=== PATIENT | male | born 1970 | race Caucasian/White ===

== ENCOUNTER 2019-11-09 09:26 | Day surgery (SDC) | payer OTHER ==
[~2019-11-09 09:26] MED LIST: Lactated Ringers 1,000 ML IV SCH; Sodium Chloride 0.9% 10 ML SDV IV PRN; Sodium Chloride 0.9% 10 ML Syringe FLUSH PRN; Sodium Chloride 0.9% 2.5 ML Syringe FLUSH PRN; fentaNYL 100 MCG/2 ML SDV ONE
[2019-11-09] MEDS ORDERED: Ondansetron 4 MG/2 ML SDV ONE (10:15)
[2019-11-09] MEDS ORDERED: fentaNYL 100 MCG/2 ML SDV ONE (10:15)
[2019-11-09] MEDS ORDERED: Propofol 200 MG/20 ML SDV ONE (10:15)
--- NOTE | 2019-11-09 10:21 | PCM.PREANE ---
Preanesthetic Assessment - Anesthesia/Transfusion/Family Hx Anesthesia History: Prior Anesthesia Without Reaction Family History of Anesthesia Reaction: No Transfusion History: Prior Transfusion Without Reaction - Review of Systems General: No Symptoms Pulmonary: No Symptoms Cardiovascular: No Symptoms, Orthopnea Neurological: No Symptoms Other: Reports: None - Physical Assessment Height: 5 ft 10 in Weight: 90.265 kg ASA Class: 2 Mental Status: Alert & Oriented x3 Airway Class: Mallampati = 2 Dentition: Reports: Normal Dentition ROM/Head Extension: Full Lungs: Clear to Auscultation, Normal Respiratory Effort Cardiovascular: Regular Rate, Regular Rhythm - Allergies Allergies/Adverse Reactions: Allergies Allergy/AdvReac Type Severity Reaction Status Date / Time No Known Allergies Allergy Verified 11/03/19 12:40 - Blood Blood Available: No - Anesthesia Plan Pre-Op Medication Ordered: None - Acknowledgements Anesthesia Type Planned: General Anesthesia Pt an Appropriate Candidate for the Planned Anesthesia: Yes Alternatives and Risks of Anesthesia Discussed w Pt/Guardian: Yes Pt/Guardian Understands and Agrees with Anesthesia Plan: Yes Additional Comments: Xiao prob list: has prostate cancer, soon to be starting external radiation therapy PLAN: tiva PreAnesthesia Questionnaire HEENT History: Reports: Other (See Below) Other HEENT History: wears glasses Cardiovascular History: Reports: Hypertension Respiratory History: Reports: Other (See Below) Other Respiratory History: sleep apnea in the past, states is good since weight loss Gastrointestinal History: Reports: Other (See Below) Other Gastrointestinal History: occasional heartburn relieved with tums Genitourinary History: Reports: Prostate Disorder Other Genitourinary History: prostate cancer Musculoskeletal History: Reports: Other (See Below) Other Musculoskeletal History: traumatic injury to right foot at 7 years of age Neurological History: Reports: None Psychiatric History: Reports: None Endocrine/Metabolic History: Reports: None Hematologic History: Reports: Blood Transfusion(s) Other Hematologic History: had blood transfusion due to foot injury Immunologic History: Reports: None Oncologic (Cancer) History: Reports: Prostate Other Oncologic History: going to start radiation in [facility] for prostate cancer Dermatologic History: Reports: None - Past Surgical History Head Surgeries/Procedures: Reports: None HEENT Surgical History: Reports: Naso-Sinus Surgery Other HEENT Surgeries/Procedures: reconstructive nasal and sinus surgery Cardiovascular Surgical History: Reports: None Respiratory Surgical History: Reports: None GI Surgical History: Reports: None Male Surgical History: Reports: None Endocrine Surgical History: Reports: None Neurological Surgical History: Reports: None Musculoskeletal Surgical History: Reports: Other (See Below) Other Musculoskeletal Surgeries/Procedures:: multiple surgeries to right foot at 7 years old ("got it caught in a pump augustus") denies any hardware to that foot Oncologic Surgical History: Reports: None Dermatological Surgical History: Reports: None - SUBSTANCE USE Smoking Status *Q: Former Smoker Days Per Week of Alcohol Use: 7 Number of Drinks Per Day: 2 Total Drinks Per Week: 14 - HOME MEDS Home Medications: Home Meds Lisinopril [Zestril] 5 mg PO DAILY 11/03/19 [History] - CURRENT (IN HOUSE) MEDS Current Meds: Current Medications Lactated Ringer's (Ringers, Lactated) 1,000 mls @ 125 mls/hr IV ASDIRECTED MAURICIO Sodium Chloride (Saline Flush) 10 ml FLUSH ASDIRECTED PRN PRN Reason: Keep Vein Open Sodium Chloride (Saline Flush) 2.5 ml FLUSH ASDIRECTED PRN PRN Reason: Keep Vein Open Sodium Chloride (Saline Flush) 10 ml FLUSH ASDIRECTED PRN PRN Reason: Keep Vein Open Sodium Chloride (Saline Flush) 2.5 ml FLUSH ASDIRECTED PRN PRN Reason: Keep Vein Open Sodium Chloride (Normal Saline) 10 ml IV ASDIRECTED PRN PRN Reason: IV Use Discontinued Medications Fentanyl (Sublimaze) Confirm Administered Dose 100 mcg .ROUTE .STK-MED ONE Stop: 11/09/19 08:24 Fentanyl (Sublimaze) Confirm Administered Dose 100 mcg .ROUTE .STK-MED ONE Stop: 11/09/19 10:16 Ondansetron HCl (Zofran) Confirm Administered Dose 4 mg .ROUTE .STK-MED ONE Stop: 11/09/19 10:16 Propofol (Diprivan 20 Ml) Confirm Administered Dose 400 mg .ROUTE .STK-MED ONE Stop: 11/09/19 10:16
[2019-11-09] MEDS ORDERED: Midazolam 1 MG/ML 2 ML SDV ONE (10:29)
--- NOTE | 2019-11-09 11:09 | PCM.POSTAN ---
POST ANESTHESIA ASSESSMENT - MENTAL STATUS Mental Status: Alert - VITAL SIGNS Vital Signs: Last Vital Signs Temp 36.2 C 11/09/19 10:59 Pulse 54 L 11/09/19 11:04 Resp 12 11/09/19 11:04 BP 94/66 11/09/19 11:04 Pulse Ox 96 11/09/19 11:04 - RESPIRATORY Respiratory Status: Respiratory Rate WNL - CARDIOVASCULAR CV Status: Pulse Rate WNL - GASTROINTESTINAL GI Status: No Symptoms - PAIN Pain Score: 0 - OBSERVATIONS Free Text/Narrative:: Doing well. Awake.
--- NOTE | 2019-11-09 11:40 | PCM48HPAN ---
Post Anesthesia Note - EVALUATION WITHIN 48HRS OF ANESTHETIC Vital Signs in Normal Range: Yes Patient Participated in Evaluation: Yes Respiratory Function Stable: Yes Airway Patent: Yes Cardiovascular Function Stable: Yes Hydration Status Stable: Yes Pain Control Satisfactory: Yes Nausea and Vomiting Control Satisfactory: Yes Mental Status Recovered: Yes Vital Signs: Last Vital Signs Temp 97.2 F 11/09/19 10:59 Pulse 56 L 11/09/19 11:09 Resp 12 11/09/19 11:09 BP 93/60 11/09/19 11:09 Pulse Ox 94 L 11/09/19 11:09
--- NOTE | 2019-11-09 13:45 | PCM.OPNOTE ---
- General Post-Op/Procedure Note Date of Surgery/Procedure: 11/09/19 Operative Procedure(s): Screening colonoscopy Findings: Diverticulosis throughout colon Pre Op Diagnosis: Screening colonoscopy Post-Op Diagnosis: Diverticulosis Anesthesia Technique: CURTIS Primary Surgeon: Jazmine Dickson Condition: Good Free Text/Narrative:: Intake & Output 11/08/19 11/09/19 11/09/19 22:59 06:59 14:59 Intake Total 1200 Balance 1200
--- NOTE | 2019-11-10 15:11 | OR ---
SURGEON: JAZMINE DICKSON MD DATE OF PROCEDURE: 11/09/2019 PREOPERATIVE DIAGNOSIS: Screening colonoscopy. POSTOPERATIVE DIAGNOSIS: Diverticulosis. PROCEDURE PERFORMED: Screening colonoscopy. PRIMARY SURGEON: Jazmine Dickson MD. ANESTHESIA: MAC. INSTRUMENT USED: Olympus colonoscope. EXTENT OF EXAM: To the cecum. PREPARATION: Good. LIMITATIONS: None. INDICATIONS: The patient is a 49-year-old male who presents for screening colonoscopy. I explained the procedure; expected perioperative course; and the risks including bleeding, infection, or damage to surrounding structures including perforation. The patient verbalized understanding and wishes to proceed. PROCEDURE IN DETAIL: The patient was brought into the endoscopy suite and placed in a left lateral decubitus position. A time-out was completed verifying the patient's name, age, date of , allergies, and procedure to be performed. Monitored anesthesia care was induced and continuous oxygen was provided via nasal cannula throughout the procedure. After adequate sedation was achieved, a digital rectal exam was performed. This exam was within normal limits. A well-lubricated colonoscope was inserted in the rectum and advanced under direct visualization to the level of the cecum. The cecum was identified by both visual and anatomic landmarks. A photograph was taken of the cecal cap as well as with the scope retroflexed within the cecum. The scope was then fully withdrawn while examining the color, texture, anatomy, and integrity of the mucosa from the cecum to the anal canal. The patient was noted to have diverticulosis scattered throughout the colon. Most of his diverticula though were in the sigmoid colon. The scope was brought into the rectum and retroflexed to allow visualization of the anal canal opening. This appeared normal and a photograph was taken. The scope was then straightened and fully withdrawn. The cecum to anus time was 6 minutes. The patient tolerated the procedure well and was transferred to the PACU in stable condition. ENDOSCOPIC DIAGNOSIS: Diverticulosis. RECOMMENDATIONS: The patient can follow up in clinic in 2 weeks to discuss diverticulosis. If he does not, we will follow up in 10 years with another repeat colonoscopy. GAURAV / ALFREDO /[id number]
== END 2019-11-09 11:37 | disposition home or self-care (01) ==
LOC: MW.SDS 09:26
PROVIDERS: ATTEND Surgery
DX: Z12.11 Encounter for screening for malignant neoplasm of colon (principal); K57.30 Diverticulosis of large intestine without perforation or abscess without bleeding; C61 Malignant neoplasm of prostate; I10 Essential (primary) hypertension; Z87.891 Personal history of nicotine dependence; Z79.899 Other long term (current) drug therapy
CPT/HCPCS: 45378; J2250; J2405; J2704; J3010; J7120